=== PATIENT | male | born 1970 | race Caucasian/White ===

== ENCOUNTER 2020-07-12 17:03 | Inpatient (IN) ==
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
[2020-07-12 18:17] LABS: Basophils # (auto) 0.02 K/uL (0-0.2); Basophils % (auto) 0.4 %; Hematocrit (blood only) 46.7 % (42-52); Hemoglobin 15.9 g/dL (14.0-18.0); Lymphocytes # (auto) 1.03 K/uL (1.2-3.4); Mean Corpuscular Hemoglobin 30.5 pg (25-34); Mean Corpuscular Volume 89.6 fL (80-100); Mean Platelet Volume 11.1 fL (7.4-10.4); Monocytes # (auto) 0.61 K/uL (0.11-0.59); Monocytes % (auto) 11.9 %; Neutrophils # (auto) 3.48 K/uL (1.4-6.5); Neutrophils % (auto) 67.7 %; Platelet Count 108 K/uL (130-400); RDW Coefficient of Variation 13.5 % (11.5-14.5); RDW Standard Deviation 44.4 fL (36.4-46.3); Red Blood Count 5.21 M/uL (4.7-6.1); White Blood Count 5.14 K/uL (4.8-10.8)
[2020-07-12 18:27] LABS: Appearance Urine Clear (Clear); Bacteria Urine Automated Negative (Negative); Blood Urine Trace (Negative); Color Urine Dark Yellow; Glucose Urine UA Negative (Negative); Ketones Urine 1+ (Negative); Leukocyte Esterase Urine Trace (Negative); Nitrite Urine Negative (Negative); Protein Urine 2+ (Negative); Specific Gravity Urine 1.039 (1.000-1.030); Urobilinogen Urine Negative (Negative)
[2020-07-12 18:28] LABS: Bilirubin Urine 1+ (Negative)
[2020-07-12 18:28] LABS: INR 1.1 (0.9-1.1); Partial Thromboplastin Ratio 1.2; Partial Thromboplastin Time 32.8 Seconds (21.0-31.0); Prothrombin Time 11.1 Seconds (9.0-12.0)
[2020-07-12 18:37] LABS: Alanine Aminotransferase 50 U/L (12-78); Albumin Level 3.1 gm/dl (3.4-5.0); Aspartate Aminotransferase 49 U/L (15-37); BUN Creatinine Ratio 22.3 (10-20); Blood Urea Nitrogen 23 mg/dl (7-18); Calcium 7.8 mg/dl (8.5-10.1); Carbon Dioxide 23 mmol/L (21-32); Chloride 107 mmol/L (98-107); Est GFR (African American) 95.9; Est GFR (Non-African American) 82.7; Glucose 126 mg/dl (70-99); Magnesium 2.8 mg/dl (1.8-2.4); Potassium 3.8 mmol/L (3.5-5.1); Sodium 140 mmol/L (136-145)
--- NOTE | 2020-07-12 18:39 | XRay Report ---
XR chest 1V portable HISTORY: dyspnea COMPARISON: None. FINDINGS: No pneumothorax. No pleural effusions. The heart is normal in size. There are low lung volu mes. There are patchy peripheral airspace opacities within the bilateral mid to lower lung zones. Thi s likely represents a viral pneumonia. No evidence for pulmonary edema. IMPRESSION: Patchy peripheral airspace opacities within the bilateral mid to lower lung zones. This likely repres ents a viral pneumonia. ACT 112: Negative or not required by law. Electronically signed by: Devonte Stovall M.D. 07/12/2020 6:38 PM
[2020-07-12 18:48] LABS: Albumin Globulin Ratio 0.8 (0.9-2); Alkaline Phosphatase 44 U/L (45-117); Bilirubin,Total 0.7 mg/dl (0.2-1); Globulin 4.1 gm/dl (2.5-4.0); Total Protein 7.2 gm/dl (6.4-8.2); Troponin I < 0.015 ng/ml (0-0.045)
[2020-07-12] MEDS ORDERED: DEXAMETHASONE SOD INJ 4 MG/ML VIAL IV STA (18:56)
[2020-07-12] MEDS ORDERED: SODIUM CHLORIDE 0.9% 1000ML 1,000 ML IV ONE (18:58)
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
[2020-07-12 19:11] LABS: C Reactive Protein 3.65 mg/dl (0-0.29)
[2020-07-12 19:14] LABS: D Dimer 450 ug/L FEU (0-500)
[2020-07-12] MEDS ORDERED: POLYETHYLENE (MIRALAX) 17 GM PACK PO PRN (20:16)
[2020-07-12] MEDS ORDERED: ALUMINUM/MAGNESIUM SUSP 30 ML UDC PO PRN (20:16)
[2020-07-12] MEDS ORDERED: ACETAMINOPHEN 325 MG TAB PO PRN (20:16)
[2020-07-12] MEDS ORDERED: ONDANSETRON INJ 2 MG/ML 2 ML VIAL IV PRN (20:16)
[2020-07-12] MEDS ORDERED: PHARMACY GLYCEMIC MGMT CONSULT PRN (20:21)
[2020-07-12] MEDS ORDERED: GLUCOSE 40% GEL 15 GM TUBE PO PRN (20:45)
[2020-07-12] MEDS ORDERED: CARBOHYDRATES FOR HYPOGLYCEMIA PO PRN (20:45)
[2020-07-12] MEDS ORDERED: GLUCOSE 10 TABS/TUBE PO PRN (20:45)
[2020-07-12] MEDS ORDERED: DEXTROSE 50% 50 ML SYRINGE IV PRN (20:45)
[2020-07-12] MEDS ORDERED: GLUCAGON FOR INJ 1 MG VIAL SQ PRN (20:45)
[2020-07-12] MEDS: INSULIN ASPART 100 UNITS/ML 3 ML PEN SC SCH (21:58)
[2020-07-13 05:46] LABS: Basophils # (auto) 0.02 K/uL (0-0.2); Basophils % (auto) 0.7 %; Hematocrit (blood only) 44.3 % (42-52); Hemoglobin 15.1 g/dL (14.0-18.0); Immature Granulocytes # (auto) 0.01 K/uL (0.00-0.02); Immature Granulocytes % (auto) 0.3 %; Lymphocytes # (auto) 0.78 K/uL (1.2-3.4); Lymphocytes % (auto) 27.3 %; Mean Corpuscular Hemoglobin 30.6 pg (25-34); Mean Corpuscular Hgb Conc 34.1 g/dL (32-36); Mean Corpuscular Volume 89.7 fL (80-100); Mean Platelet Volume 11.2 fL (7.4-10.4); Monocytes % (auto) 10.5 %; Neutrophils # (auto) 1.75 K/uL (1.4-6.5); Neutrophils % (auto) 61.2 %; Platelet Count 127 K/uL (130-400); RDW Coefficient of Variation 13.5 % (11.5-14.5); RDW Standard Deviation 44.6 fL (36.4-46.3); Red Blood Count 4.94 M/uL (4.7-6.1); White Blood Count 2.86 K/uL (4.8-10.8)
[2020-07-13 06:20] LABS: RBC Morphology Unremarkable
[2020-07-13 06:22] LABS: BUN Creatinine Ratio 20.2 (10-20); Calcium 8.2 mg/dl (8.5-10.1); Creatinine Clr Calc Pharmacy 103.6 ml/min; Est GFR (African American) 94.8; Est GFR (Non-African American) 81.8; Potassium 4.6 mmol/L (3.5-5.1)
[2020-07-13 06:44] LABS: Estimated Average Glucose 169 mg/dl; Hemoglobin A1C 7.5 % (4.5-5.6)
[2020-07-13] MEDS ORDERED: ALBUT/IPRATROP 3MG/0.5MG NEB 3 ML VIAL NEB SCH (07:00)
[2020-07-13] MEDS ORDERED: ALBUT/IPRATROP 3MG/0.5MG NEB 3 ML VIAL NEB PRN (08:31)
[2020-07-13] MEDS: INSULIN ASPART 100 UNITS/ML 3 ML PEN SC SCH ×4 (08:33→20:56)
[2020-07-13] MEDS: dexAMETHasone 6 MG in SYRINGE 0 ML IV SCH (08:35)
[2020-07-13] MEDS: ENOXAPARIN INJ 40 MG/0.4 ML SYR SQ SCH (08:35)
[2020-07-13] MEDS: ASPIRIN 81 MG ECTAB PO SCH (08:36)
[2020-07-13] MEDS: ROSUVASTATIN CALCIUM 5 MG TAB PO SCH (08:36)
[2020-07-13] MEDS ORDERED: INSULIN GLARGINE SOLOSTAR 100 UNITS/ML 3 ML PEN SC SCH (09:00)
--- NOTE | 2020-07-13 12:29 | Electrocardiogram Report ---
Test Reason : Blood Pressure : / mmHG Vent. Rate : 066 BPM Atrial Rate : 066 BPM P-R Int : 184 ms QRS Dur : 098 ms QT Int : 386 ms P-R-T Axes : 040 -23 009 degrees QTc Int : 404 ms Normal sinus rhythm Minimal voltage criteria for LVH, may be normal variant Borderline ECG When compared with ECG of 18-JAN-2018 12:27, No significant change was found Confirmed by Abdoul Smith ([id number]) on 07/13/2020 12:29:46 PM Referred By: REFERRED SELF Confirmed By:Abdoul Smith
--- NOTE | 2020-07-13 15:19 | Pharmacy Report ---
Pharmacy Glycemic Short Note 2 - Date of Service July 13, 2020 - Glycemic Short BSG Results (Last 24 hours): 07/12/20 07/12/20 07/13/20 18:02 21:15 05:20 Glucose 126 H 163 H POC Glucose 171 H 07/13/20 07/13/20 08:24 12:21 Glucose POC Glucose 143 H 195 H OUTPATIENT ANTIDIABETIC REGIMEN: * metformin 500 mg BID * HbA1C = 7.5% ASSESSMENT: * Mr Salas is a 50 y/o M with a PMH of T2DM (HbA1C above goal range) who presents with COVID-19 pneumonia. Patient started on dexamethasone 6 mg IV daily yesterday evening. * BSG yesterday evening was 171 mg/dL. Fasting this morning was 143 mg/dL. * Will start with full weight-based stress of 2 Lantus dosing to cover basic basal requirements plus steroid hyperglycemia. * Start Novolog weight-based stress of 3. * Hold metformin for critical illness. PLAN FOR INPATIENT GLYCEMIC CONTROL: * Hold outpatient oral diabetes medications * Basal insulin * Lantus 36 units SQ daily * Bolus insulin * NovoLog per scale ACHS or Q6hrs while NPO * Goal Range: Low 110 mg/dL - High 140 mg/dL * Correction Factor: 15 mg/dL/unit * Nutritional / Prandial insulin per carb ratio of 1 unit per 4 grams CHO consumed PLAN FOR DISCHARGE: * Patient's HbA1C is slightly above goal range. * Goal is < 7% * currently HbA1C is 7.5% * Recommend titrating metformin to maximally tolerated dose. Typical max dose is 1000 mg BID. * If having difficulty titrating upwards could try taking with food or switching to XR formulation.
--- NOTE | 2020-07-13 21:49 | Hospitalist Progress Note ---
Date of Service July 13, 2020 Assessment & Plan (1) Pneumonia due to COVID-19 virus: IV dexamethasone 6 mg daily for 10 days Isolation precautions Of note his is also admitted with the same diagnosis the same day. No remdesevir due to patient being out of window. currently on 2 liters nasal cannula (2) Hypoxia: Aim O2 sats > 90% Much worse on exertion and may need 2 step prior to discharge (3) Diabetes mellitus, type 2: Hold metformin Consult pharmacy for glycemic control in setting of steroid use (4) Hemochromatosis: Follow up outpatient (5) HTN (hypertension): Hold his usual lisinopril given currentlt BP normal withour him taking this (6) Hyperlipidemia: Continue rosuvastatin 5mg PO daily (7) DVT prophylaxis: Low d dimer. Lovenox 40mg SQ daily Admission and Anticipated Discharge Date Admission Date: July 12, 2020 Subjective 50 yo male reports feeling well. He denies new symptoms. Review of Systems Review of Systems: All systems reviewed & are unremarkable except as noted in HPI & below Physical Exam Physical Exam: Constitutional: WD/WN, vitals as above + obese Eyes: + anicteric sclerae; pupils not irregular ENMT: external ear and nose normal, oropharynx normal Neck: trachea midline, no thyromegaly Respiratory: normal respiratory effort, Auscultation: + crackles (fine bibasal); no wheezes Cardiovascular: RRR, no murmur, no edema Gastrointestinal (Abdomen): normal bowel sounds, soft, nontender, no hepatosplenomegaly Musculoskeletal: no cyanosis or clubbing, extremities motor strength 5/5 Skin: no rashes, warm and dry Neurologic: moves all extremities and awake; not confused Psychiatric: A+Ox3, euthymic affect Genitourinary: no CVA tenderness Results & Data Results & Data ([facility]) Vital Signs (Past 12 Hours) Vital Signs Temp Pulse Resp BP Pulse Ox 07/13/20 21:01 36.5 C 54 L 18 157/73 H 92 07/13/20 16:00 36.5 C 64 18 167/82 H 94 PG Care Time/CCT Total # of Minutes Spent Total Time Spent with Patient: Total time spent is greater than 50% in coordination of care (as documented) at patient's floor/unit and/or counseling patient: Coding Level of Care Code 85822 Subseq Hosp Care Lvl 3 Diagnoses Pneumonia due to COVID-19 virus U07.1; J12.82 Hypoxia R09.02 Diabetes mellitus, type 2 E11.9 Hemochromatosis E83.119 HTN (hypertension) I10 Hyperlipidemia E78.5 DVT prophylaxis Z29.9 Time Spent (min) 35
[2020-07-14 07:24] LABS: Hematocrit (blood only) 43.5 % (42-52); Hemoglobin 15.3 g/dL (14.0-18.0); Mean Corpuscular Hemoglobin 31.2 pg (25-34); Mean Corpuscular Hgb Conc 35.2 g/dL (32-36); Mean Corpuscular Volume 88.8 fL (80-100); Mean Platelet Volume 11.4 fL (7.4-10.4); Platelet Count 172 K/uL (130-400); RDW Coefficient of Variation 13.4 % (11.5-14.5); RDW Standard Deviation 43.9 fL (36.4-46.3)
[2020-07-14 07:56] LABS: BUN Creatinine Ratio 23.1 (10-20); Calcium 8.6 mg/dl (8.5-10.1); Creatinine Clr Calc Pharmacy 112.1 ml/min; Est GFR (African American) 104.3; Potassium 4.1 mmol/L (3.5-5.1)
[2020-07-14] MEDS: ENOXAPARIN INJ 40 MG/0.4 ML SYR SQ SCH (08:37)
[2020-07-14] MEDS: ROSUVASTATIN CALCIUM 5 MG TAB PO SCH (08:38)
[2020-07-14] MEDS: ASPIRIN 81 MG ECTAB PO SCH (08:38)
[2020-07-14] MEDS: dexAMETHasone 6 MG in SYRINGE 0 ML IV SCH (08:39)
[2020-07-14] MEDS: INSULIN GLARGINE SOLOSTAR 100 UNITS/ML 3 ML PEN SC SCH (08:46)
[2020-07-14] MEDS: INSULIN ASPART 100 UNITS/ML 3 ML PEN SC SCH ×4 (08:46→21:13)
[2020-07-14] MEDS ORDERED: COUGH DROP (SUGAR FREE) LOZ 24 LOZ/1 BOX BUCCAL PRN (09:25)
[2020-07-14] MEDS ORDERED: Nursing to Pharmacy Communication SCH (09:30)
--- NOTE | 2020-07-14 10:58 | Electrocardiogram Report ---
Test Reason : Blood Pressure : / mmHG Vent. Rate : 048 BPM Atrial Rate : 048 BPM P-R Int : 182 ms QRS Dur : 090 ms QT Int : 474 ms P-R-T Axes : 043 -22 -05 degrees QTc Int : 423 ms Sinus bradycardia with sinus arrhythmia Moderate voltage criteria for LVH, may be normal variant Borderline ECG When compared with ECG of 12-JUL-2020 17:50, HR has decreased Confirmed by Abdoul Smith ([id number]) on 07/14/2020 10:58:26 AM Referred By: REFERRED SELF Confirmed By:Abdoul Smith
--- NOTE | 2020-07-14 11:51 | Pharmacy Report ---
Pharmacy Glycemic Short Note 2 - Date of Service July 14, 2020 - Glycemic Short BSG Results (Last 24 hours): 07/13/20 07/13/20 07/13/20 12:21 17:26 20:31 Glucose POC Glucose 195 H 149 H 144 H 07/14/20 06:59 Glucose 139 H POC Glucose OUTPATIENT ANTIDIABETIC REGIMEN: * metformin 500 mg BID * HbA1C = 7.5% ASSESSMENT: 07/14/20 * Patient received 74 units of insulin yesterday (36 units of basal and 38 units of bolus) with BSGs ranging 143-195 mg/dL. (all were around 145 mg/dL except for lunch which was 195 mg/dL). * Fasting today was 119 mg/dL. * Decrease Lantus by 20% due to fasting trending downwards by 30 points. * Continue tight Novolog as appears effective. 07/13/20 * Mr Salas is a 50 y/o M with a PMH of T2DM (HbA1C above goal range) who presents with COVID-19 pneumonia. Patient started on dexamethasone 6 mg IV daily yesterday evening. * BSG yesterday evening was 171 mg/dL. Fasting this morning was 143 mg/dL. * Will start with full weight-based stress of 2 Lantus dosing to cover basic basal requirements plus steroid hyperglycemia. * Start Novolog weight-based stress of 3. * Hold metformin for critical illness. PLAN FOR INPATIENT GLYCEMIC CONTROL: * Hold outpatient oral diabetes medications * Basal insulin * Lantus 30 units SQ daily * Bolus insulin * NovoLog per scale ACHS or Q6hrs while NPO * Goal Range: Low 110 mg/dL - High 140 mg/dL * Correction Factor: 15 mg/dL/unit * Nutritional / Prandial insulin per carb ratio of 1 unit per 4 grams CHO consumed PLAN FOR DISCHARGE: * Patient's HbA1C is slightly above goal range. * Goal is < 7% * currently HbA1C is 7.5% * Recommend titrating metformin to maximally tolerated dose. Typical max dose is 1000 mg BID. * If having difficulty titrating upwards could try taking with food or switching to XR formulation.
--- NOTE | 2020-07-14 22:12 | Hospitalist Progress Note ---
Date of Service July 14, 2020 Assessment & Plan (1) Pneumonia due to COVID-19 virus: IV dexamethasone 6 mg daily for 10 days Isolation precautions Of note his is also admitted with the same diagnosis the same day. No remdesevir due to patient being out of window. currently on 2 liters nasal cannula will obtain 2 step tomorrow (2) Hypoxia: Aim O2 sats > 90% Much worse on exertion and may need 2 step prior to discharge (3) Diabetes mellitus, type 2: Hold metformin Consult pharmacy for glycemic control in setting of steroid use (4) Hemochromatosis: Follow up outpatient (5) HTN (hypertension): Hold his usual lisinopril given currentlt BP normal withour him taking this (6) Hyperlipidemia: Continue rosuvastatin 5mg PO daily (7) DVT prophylaxis: Low d dimer. Lovenox 40mg SQ daily Admission and Anticipated Discharge Date Admission Date: July 12, 2020 Subjective 50 yo male reports feeling well. He has no new complaints. Review of Systems Review of Systems: All systems reviewed & are unremarkable except as noted in HPI & below Physical Exam Physical Exam: Constitutional: WD/WN, vitals as above + obese Eyes: + anicteric sclerae; pupils not irregular ENMT: external ear and nose normal, oropharynx normal Neck: trachea midline, no thyromegaly Respiratory: normal respiratory effort, Auscultation: + crackles (fine bibasal); no wheezes Cardiovascular: RRR, no murmur, no edema Gastrointestinal (Abdomen): normal bowel sounds, soft, nontender, no hepatosplenomegaly Musculoskeletal: no cyanosis or clubbing, extremities motor strength 5/5 Skin: no rashes, warm and dry Neurologic: moves all extremities and awake; not confused Psychiatric: A+Ox3, euthymic affect Genitourinary: no CVA tenderness Results & Data Results & Data ([facility]) Vital Signs (Past 12 Hours) Vital Signs Temp Pulse Resp BP Pulse Ox 07/14/20 22:05 92 07/14/20 21:28 36.5 C 60 18 140/68 87 L 07/14/20 16:00 36.6 C 55 L 22 142/73 H 96 PG Care Time/CCT Total # of Minutes Spent Total Time Spent with Patient: Total time spent is greater than 50% in coordination of care (as documented) at patient's floor/unit and/or counseling patient: Coding Level of Care Code 89951 Subseq Hosp Care Lvl 3 Diagnoses Pneumonia due to COVID-19 virus U07.1; J12.82 Hypoxia R09.02 Diabetes mellitus, type 2 E11.9 Hemochromatosis E83.119 HTN (hypertension) I10 Hyperlipidemia E78.5 DVT prophylaxis Z29.9 Time Spent (min) 35
[2020-07-15] MEDS: INSULIN ASPART 100 UNITS/ML 3 ML PEN SC SCH ×2 (08:58→12:38)
[2020-07-15] MEDS: INSULIN GLARGINE SOLOSTAR 100 UNITS/ML 3 ML PEN SC SCH (09:01)
[2020-07-15] MEDS: ASPIRIN 81 MG ECTAB PO SCH (09:04)
[2020-07-15] MEDS: dexAMETHasone 6 MG in SYRINGE 0 ML IV SCH (09:04)
[2020-07-15] MEDS: ENOXAPARIN INJ 40 MG/0.4 ML SYR SQ SCH (09:04)
[2020-07-15] MEDS: ROSUVASTATIN CALCIUM 5 MG TAB PO SCH (09:04)
--- NOTE | 2020-07-22 09:34 | Discharge Summary ---
Date of Service July 15, 2020 Admission HPI Per Admitting Provider Chet Salas is a 50 year old male who presents to the ER with shortness of breath and fatigue in the setting of known COVID-19 pneumonia. Initial symptoms started Jul 03 2019 with generalized myalgias, fatigue, mild cough, shortness of breath, poor appetite, mild loss of taste and smell. He denies any fever/chills, nasal congestion, chest pain, abdominal pain or diarrhea. He reports trying to drink fluids but not eaten much for the past 6 days. In the ER CXR consistent with viral pneumonia. He was mildly hypoxic with spO2 90-94% at rest but desaturated to mid 80s on minimal exertion. He was referred to medicine for admission and ongoing management of COVID-19 and hypoxia. Principal Diagnosis COVID 19 Pneumonia Discharge Exam Constitutional: WD/WN, vitals as above + obese Eyes: + anicteric sclerae; pupils not irregular ENMT: external ear and nose normal, oropharynx normal Neck: trachea midline, no thyromegaly Respiratory: normal respiratory effort, Auscultation: + crackles (fine bibasal); no wheezes Cardiovascular: RRR, no murmur, no edema Gastrointestinal (Abdomen): normal bowel sounds, soft, nontender, no hepatosplenomegaly Musculoskeletal: no cyanosis or clubbing, extremities motor strength 5/5 Skin: no rashes, warm and dry Neurologic: moves all extremities and awake; not confused Psychiatric: A+Ox3, euthymic affect Genitourinary: no CVA tenderness Discharge Data Allergies Allergy/AdvReac Type Severity Reaction Status Date / Time No Known Allergies Allergy Verified 07/12/20 19:04 Consultations 07/12/20 18:47 ED Decision to Admit Stat Hospital Course (1) Pneumonia due to COVID-19 virus: IV dexamethasone 6 mg daily for 10 days Isolation precautions Of note his is also admitted with the same diagnosis the same day. No remdesevir due to patient being out of window. currently on 2 liters nasal cannula on ambulation as per 2 step. Home oxygen obtained, will continue decadron for 10 days total (2) Hypoxia: Aim O2 sats > 90% Much worse on exertion and may need 2 step prior to discharge (3) Diabetes mellitus, type 2: Hold metformin Consult pharmacy for glycemic control in setting of steroid use (4) Hemochromatosis: Follow up outpatient (5) HTN (hypertension): Hold his usual lisinopril given currentlt BP normal withour him taking this (6) Hyperlipidemia: Continue rosuvastatin 5mg PO daily (7) DVT prophylaxis: Low d dimer. Lovenox 40mg SQ daily Total Time Total Time Spent Total Time Spent (In Minutes): 35 Discharge Plan Discharge Items Patient Disposition: Home - Self-Care Reason For Visit: COVID-19 PNEUMONIA, HYPOXIA Discharge Diagnosis: COVID 19 Condition on Discharge: Good Activity: Resume your previous activity Non-emergency contact: Primary Care Provider Call non-emergency contact if: you have any medication questions Follow-up/Referrals: Maria Elena Hoffman DO [Primary Care Provider] - Diet: Carb Consistent or DM2 Addtl Attending Provider Instructions: You will be discharged on decadron for your COVID infection. You will also have oxygen at home. will recommend followup with PCP. Recommend quarantining for 1 more week. Pending Studies at Discharge: No Stand-Alone Forms: [facility], Smoking Cessation Medications and DC Order Prescriptions: New dexamethasone [Decadron] 6 mg tablet 6 mg PO DAILY Qty: 6 RF: 0 Continued metformin 500 mg tablet 500 mg PO BID Qty: 180 RF: 1 aspirin 81 mg Tablet,Delayed Release (Dr/Ec) 81 mg PO QAM RF: 0 rosuvastatin [Crestor] 5 mg tablet 5 mg PO QAM RF: 0 Discontinued lisinopril 40 mg tablet 40 mg PO QAM Qty: 90 RF: 3 No Action (DME) OneTouch Verio test strips Strip See Rx Instructions .ROUTE .MEDSUPPLY Qty: 200 RF: 2 (DME) lancets [OneTouch Delica Lancets] 33 gauge misc See Rx Instructions .ROUTE .MEDSUPPLY Qty: 200 RF: 2 Discharge Orders: Discharge Order (Routine); Ordered 07/15/20 Ordered By: Brayan Oneal/Other Patient Handouts: High Blood Sugar (Hyperglycemia), Hypoglycemia (Low Blood Sugar), Managing Type 2 Diabetes, Using Oxygen Safely, 5 Steps for Eating Healthier, Traveling with Oxygen, Using an Oxygen Tank at Home, Managing Diabetes: The A1C Test, Understanding Type 2 Diabetes Admission Data Admit Date/Time: 07/12/20 19:27 Attending Provider: Brayan Sarah Admit Provider: Clemente Jensen Primary Care Provider: Maria Elena Hoffman Other Providers: Clemente Jensen Other Interventions: Discharge Summary Assessment (RN) Last Done: 07/15/20 16:04 Coding Level of Care Code D/C Day Management >30 mins Diagnoses Pneumonia due to COVID-19 virus U07.1; J12.82 Hypoxia R09.02 Diabetes mellitus, type 2 E11.9 Hemochromatosis E83.119 HTN (hypertension) I10 Hyperlipidemia E78.5 DVT prophylaxis Z29.9 Time Spent (min) 35
== END 2020-07-15 17:57 | disposition home or self-care (01) | DRG 177 ==
LOC: ED 17:03 → 3E 19:27 → SUATTDRO 19:27 → 3E 19:58